=== PATIENT | female | born 2000 | race Two or more races ===

== ENCOUNTER 2021-02-08 09:42 | Emergency (ER) | payer OTHER ==
[~2021-02-08] VITALS: Ht 165.1 cm; Wt 74.8 kg
== END 2021-02-08 15:02 | disposition home or self-care (01) ==
LOC: ER 09:42 → EMR PED 09:42
DX: T55.1X1A Toxic effect of detergents, accidental (unintentional), initial encounter (principal); J68.3 Other acute and subacute respiratory conditions due to chemicals, gases, fumes and vapors; Y92.69 Other specified industrial and construction area as the place of occurrence of the external cause; Z20.822 Contact with and (suspected) exposure to COVID-19

== ENCOUNTER 2022-02-01 08:24 | Emergency (ER) | payer OTHER ==
[~2022-02-01] VITALS: Ht 167.6 cm; Wt 72.6 kg
== END 2022-02-01 11:27 ==
LOC: ER 08:24
DX: J06.9 Acute upper respiratory infection, unspecified (principal); J45.909 Unspecified asthma, uncomplicated; Z20.822 Contact with and (suspected) exposure to COVID-19